=== PATIENT | male | born 1955 | race Caucasian/White ===

== ENCOUNTER 2020-09-04 07:56 | Outpatient (CLI) | payer MEDICAID ==
--- NOTE | 2020-09-04 10:49 | XRAY Report ---
PROCEDURE: Elbow 3 View LT INDICATIONS: LEFT ELBOW PAIN TECHNIQUE: 3 views of the elbow were acquired. COMPARISON: None. FINDINGS: No acute fracture identified. Scattered subchondral sclerosis and spurring. Prominent osteophyte for mation at the radiocapitellar joint. Soft tissues: No elbow joint effusion. No suspicious soft tissue calcifications. IMPRESSION: Left elbow joint degeneration. If the patient's pain or other symptoms persist, consider further eval uation with MRI. Reviewed by: El Campos MD on 09/04/2020 10:47 AM PDT Approved by: El Campos MD on 09/04/2020 10:47 AM PDT Station ID: [id number]
--- NOTE | 2020-09-04 10:52 | XRAY Report ---
PROCEDURE: Knee Standing RT INDICATIONS: RIGHT KNEE PAIN TECHNIQUE: 3 views of the right knee, and 1 views of the left knee. COMPARISON: None. FINDINGS: On the right, expected postoperative alignment of knee arthroplasty. Hardware appears intact. No evid ence of loosening. Moderate joint effusion is present. On the left, expected postoperative alignment of knee arthroplasty. The hardware appears intact. No e vidence of hardware loosening. Soft tissues: No knee joint effusions. No suspicious soft tissue héctor cification. IMPRESSION: Bilateral knee arthroplasties in expected alignment. Moderate knee joint effusion Reviewed by: El Campos MD on 09/04/2020 10:50 AM PDT Approved by: El Campos MD on 09/04/2020 10:50 AM PDT Station ID: [id number]
== END 2020-09-04 23:59 | disposition home or self-care (01) ==
LOC: DI.N 07:56
PROVIDERS: ATTEND Orthopaedic Surgery
DX: M19.022 Primary osteoarthritis, left elbow (principal); M25.461 Effusion, right knee; Z96.653 Presence of artificial knee joint, bilateral; M25.561 Pain in right knee
CPT/HCPCS: 36415; 85027; 85651; 86140

== ENCOUNTER 2020-09-04 11:30 | Outpatient (CLI) | payer MEDICAID ==
[2020-09-04 17:44] LABS: HCT - HEMATOCRIT 46.5 % (42.0-52.0); HGB - HEMOGLOBIN 14.8 g/dL (14.0-18.0); MEAN CORPUSCULAR HGB CONC 31.8 g/dL (32.0-36.0); MEAN CORPUSCULAR VOLUME 84.9 fL (80.0-94.0); RED BLOOD COUNT 5.48 10^6/uL (4.70-6.10); RED CELL DISTRIBUTION WIDTH 14.4 % (12.0-15.0); WHITE BLOOD COUNT 6.3 x10^3/uL (4.8-10.8)
== END 2020-09-04 11:31 | disposition home or self-care (01) ==
LOC: LAB.N 11:30
PROVIDERS: ATTEND Orthopaedic Surgery
DX: M25.561 Pain in right knee (principal)
CPT/HCPCS: 36415; 85027; 85651; 86140

== ENCOUNTER 2020-09-11 08:00 | Outpatient (CLI) | payer MEDICAID ==
[2020-09-11 11:54] LABS: BF CLARITY CLOUDY; BF COLOR PINK; BF SOURCE SYNOVIAL; CC,BF RBC 24000 /mm^3; CC,BF WBC 59904 /mm^3
[2020-09-11 12:18] LABS: LYMPHOCYTES %,BODY FLUID 4 %; MONOCYTES %,BODY FLUID 2 %; NEUTROPHILS %, BF 94 %
== END 2020-09-11 23:59 | disposition home or self-care (01) ==
LOC: LAB.R 08:00
PROVIDERS: ATTEND Orthopaedic Surgery
DX: Z96.651 Presence of right artificial knee joint (principal)
CPT/HCPCS: 81599; 83516; 86140; 87070; 87075; 87205; 89051; 89060

== ENCOUNTER 2020-09-18 08:00 | Outpatient (CLI) | payer MEDICAID ==
[2020-09-18 13:15] LABS: BF CLARITY CLOUDY; BF COLOR RED; BF SOURCE SYNOVIAL
[2020-09-18 13:19] LABS: CC,BF RBC 30000 /mm^3; CC,BF WBC 41050 /mm^3
[2020-09-18 13:23] LABS: LYMPHOCYTES %,BODY FLUID 0 %; MESOTHELIAL %, BF 0 %
== END 2020-09-18 23:59 | disposition home or self-care (01) ==
LOC: LAB.R 08:00
PROVIDERS: ATTEND Physician Assistant
DX: T84.53XA Infection and inflammatory reaction due to internal right knee prosthesis, initial encounter (principal); Z96.651 Presence of right artificial knee joint
CPT/HCPCS: 81599; 87070; 87075; 87205; 89051